=== PATIENT | female | born 1980 | race Hispanic/Latino ===

== ENCOUNTER 2018-07-06 10:29 | Observation (INO) | payer MEDICAID ==
[~2018-07-06 10:29] MED LIST: PREN-64 PO
[2018-07-06 11:51] LABS: APPEARANCE,URINE Clear (CLEAR); BILIRUBIN,URINE Negative (NEGATIVE); COLOR,URINE Dark Yellow (YELLOW); GLUCOSE, URINE (UA) Negative (NEGATIVE); KETONES,URINE Negative (NEGATIVE); LEUKOCYTE ESTERASE ,URINE Trace (NEGATIVE); NITRATE,URINE Negative (NEGATIVE); OCCULT BLOOD,URINE Negative (NEGATIVE); PH,URINE 6.5 (5.0-8.0); PROTEIN,URINE Trace (NEGATIVE); UROBILINOGEN,URINE 0.2 mg/dL (0.2-1.0)
[2018-07-06 12:00] LABS: BACTERIA,URINE Rare /HPF (None Seen); MUCUS,URINE Rare LPF (None Seen); RBC,URINE 0-1 /HPF (0-1); SQUAMOUS EPITHELIAL CELL,UR Moderate /HPF (0-2)
[2018-07-06] MEDS ORDERED: LACTATED RINGERS 1000ML IV SCH (12:45)
== END 2018-07-06 13:31 | disposition home or self-care (01) ==
LOC: LDH 10:29
DX: O36.8130 Decreased fetal movements, third trimester, not applicable or unspecified (principal); O24.113 Pre-existing type 2 diabetes mellitus, in pregnancy, third trimester; Z3A.35 35 weeks gestation of pregnancy
CPT/HCPCS: 76819; 81001; 82948; G0378 ×4; J7120; 96360; 96361

== ENCOUNTER 2018-07-17 15:43 | Inpatient (IN) | payer MEDICAID | END 2018-07-20 15:40 | disposition home or self-care (01) | LOC: LDH 15:43 → WSH 07-18 15:45 | PROC: 10D00Z1 Extraction of Products of Conception, Low, Open Approach (ICD-10-PCS; principal; 2015-11-09 08:00) | PROC: 0UB70ZZ Excision of Bilateral Fallopian Tubes, Open Approach (ICD-10-PCS; 2015-11-09 08:00) | DX: O34.211 Maternal care for low transverse scar from previous cesarean delivery (principal); O24.92 Unspecified diabetes mellitus in childbirth; Z30.2 Encounter for sterilization; Z3A.36 36 weeks gestation of pregnancy; Z79.4 Long term (current) use of insulin; Z37.0 Single live birth; O69.81X0 Labor and delivery complicated by cord around neck, without compression, not applicable or unspecified ==

== ENCOUNTER → 2022-02-11 | Outpatient (CLI) | payer MEDICAID ==
[~2022-02-11] MED LIST changes: +REGADENOSON 0.4 MG/5 ML PF SYG IVP SCH
== END | disposition home or self-care (01) ==
LOC: OIH 07:36
PROVIDERS: ATTEND Internal Medicine Cardiovascular Disease
DX: I20.9 Angina pectoris, unspecified (principal); R07.9 Chest pain, unspecified
CPT/HCPCS: 78452; 96374; 93017; J2785; A9500 ×2

== ENCOUNTER → 2023-09-09 | Outpatient (CLI) | payer MEDICAID ==
[~2023-09-09] MED LIST changes: -REGADENOSON 0.4 MG/5 ML PF SYG IVP SCH
== END | disposition home or self-care (01) ==
LOC: SHCH 07:45
PROVIDERS: ATTEND Internal Medicine Cardiovascular Disease
DX: R07.9 Chest pain, unspecified (principal)
CPT/HCPCS: 93306